=== PATIENT | female | born 1960 | race Caucasian/White ===

== ENCOUNTER → 2017-06-06 | Outpatient (CLI) | payer MEDICARE, OTHER ==
[~2017-06-06] MED LIST: ACEBUTCAFT PO; AMLO10 PO; BUTALB-ACETAMI1 EAC2 PO; BUTALB-ACETAMI1 EACH PO; BUTASPCAF PO; CLON.2 PO; CYCL10 PO; DICL75ER PO; DULO60 PO; ENAL10 PO; Estradiol1 MG PO; FOLI1 PO; Flonase 0.05% N16 GM INH; GABA300 PO; HUMIRA40 MG/0.8 INJ; HYDACE5 PO; Hydrocodone-Ap1 EA23 PO; IBUP800 PO; LIDO5TO TOP; MELO7.5 PO; META800 PO; METO100ER PO; METTREX2.5 PO; NAPR500 PO; NITR.4SL SL; NITR.6SL SL; NORT25 PO; Norco 5-325 Ta1 EACH PO; OXYACE7.5T PO; PREG75 PO; PROGESTERONE100 MG PO; PROM12.5S PR; PROM25 PO; Percocet 5-3251 EACH PO; TOLT2 PO; TOLT4 PO; Zofran Odt4 MG SL; [UNRECOGNIZED DRUG - REMARK] PO
[2017-06-08 12:03] LABS: HPV Genotype 16 Not Detected (NOTDET); HPV Genotype 18 Not Detected (NOTDET)
[2017-06-25 17:39] LABS: HPV High Risk Other Not Detected (NOTDET)
== END | disposition home or self-care (01) ==
LOC: LAB 15:36
PROVIDERS: Obstetrics & Gynecology Gynecology
DX: Z09 Encounter for follow-up examination after completed treatment for conditions other than malignant neoplasm (principal); Z87.410 Personal history of cervical dysplasia
CPT/HCPCS: 87624; 88142

== ENCOUNTER → 2017-07-12 | Outpatient (CLI) | payer MEDICARE, OTHER | LOC: LAB 14:02 → LAB SHORT 14:02 | DX: R87.612 Low grade squamous intraepithelial lesion on cytologic smear of cervix (LGSIL) (principal) | CPT/HCPCS: 88305 ==

== ENCOUNTER → 2017-10-31 | Outpatient (CLI) | payer MEDICARE, OTHER | END | disposition home or self-care (01) | LOC: LAB 17:54 → LAB SHORT 17:54 | PROVIDERS: Obstetrics & Gynecology Gynecology | DX: Z12.4 Encounter for screening for malignant neoplasm of cervix (principal) | CPT/HCPCS: 87624; G0123 ==

== ENCOUNTER → 2024-12-10 | Outpatient (CLI) | payer MEDICARE, OTHER ==
[2024-12-10 17:56] LABS: Alanine Aminotransfer (ALT/SGP 27.0 U/L (12-78); Albumin, Blood 3.2 g/dL (3.4-5.0); Albumin/Globulin Ratio 0.9 (0.8-1.8); Anion Gap 8.0 mmol/L (3-11); Aspartate Aminotrans (AST/SGOT 30.0 U/L (12-37); Bilirubin, Total 0.3 mg/dL (0.1-1.0); Blood Urea Nitrogen 26.0 mg/dL (8-24); CO2, Blood 27.0 mmol/L (21-32); Calcium, Blood 8.7 mg/dL (8.5-10.1); Chloride, Blood 109.0 mmol/L (98-108); Creatinine, Blood 0.86 mg/dL (0.40-1.00); Globulin, Blood 3.6 g/dL (2.2-4.0); Glucose, Blood 125.0 mg/dL (70-99); Potassium, Blood 3.8 mmol/L (3.5-5.5); Sodium, Blood 140.0 mmol/L (136-145); Total Protein, Blood 6.8 g/dL (6.4-8.2)
== END ==
LOC: LAB 15:12 → LAB SHORT 15:12
PROVIDERS: Family Medicine
DX: I10 Essential (primary) hypertension (principal)
CPT/HCPCS: 80053